=== PATIENT | male | born 1965 | race Caucasian/White ===

== ENCOUNTER → 2022-07-16 | Day surgery (SDC) | payer MEDICAID ==
[~2022-07-16] VITALS: Ht 168.9 cm; Wt 74.8 kg
[~2022-07-16] MED LIST: ACET-2708 PO; AMLO10TA80 PO; BUPIVACAINE HCL/PF 0.5% (5MG/ML) 10ML ONE; CEFAZOLIN SODIUM 1000MG/VIAL ONE; CLON0.1T PO; DOXY150T5 PO; FAMO-135 PO; FENTANYL CITRATE/PF 50MCG/ML 2ML VIAL ONE; GLYCOPYRROLATE 0.2 MG/ML 2ML VIAL ONE; HYDROCODONE/ACETAMINOPHEN 5/325MG TABLET PO NR; IBUP-2437 PO; KETOROLAC 30MG/ML VIAL ONE; LEVO125T8 PO; LISI40TA13 PO; METF-874 PO; MIDAZOLAM HCL 2 MG/2 ML VIAL ONE; MIRT45TA59 PO; ONDANSETRON HCL 4MG/2ML INJ ONE; PROPOFOL 200MG/20ML VIAL IV ONE; ROCURONIUM BROMIDE 10MG/ML VIAL 5ML IV ONE; SIMV-43 PO; SKIN ADHESIVE 0.7 GM EA TOP ONE; SODIUM CHLORIDE 0.9% 1,000 ML IV SCH; SUCR1TAB PO
[2022-07-16 12:30] VITALS: BP 145/76
== END | disposition home or self-care (01) ==
LOC: OR 05:43
PROVIDERS: ATTEND Surgery
DX: K80.10 Calculus of gallbladder with chronic cholecystitis without obstruction (principal); I10 Essential (primary) hypertension; E11.9 Type 2 diabetes mellitus without complications; E03.9 Hypothyroidism, unspecified; E78.00 Pure hypercholesterolemia, unspecified; F32.9 Major depressive disorder, single episode, unspecified; Z79.84 Long term (current) use of oral hypoglycemic drugs; Z79.899 Other long term (current) drug therapy; Z98.890 Other specified postprocedural states; Z88.1 Allergy status to other antibiotic agents; Z20.822 Contact with and (suspected) exposure to COVID-19
CPT/HCPCS: 47562; 82962; 87426; 88304; C9803; J0690; J1885; J2250; J2405; J2704; J3010; J3490; J7030